=== PATIENT | female | born 1980 | race Caucasian/White ===

== ENCOUNTER 2018-01-20 08:30 | Day surgery (SDC) | payer OTHER ==
[2018-01-20] MEDS ORDERED: CODE1TAB37 PO (13:39)
[2018-01-20] MEDS ORDERED: DOXYCYCLINE HY100 MG PO (13:39)
== END 2018-01-20 17:15 | disposition home or self-care (01) ==
LOC: CIR.AMB 08:30
DX: O00.101 Right tubal pregnancy without intrauterine pregnancy (principal)